=== PATIENT | female | born 1985 | race Caucasian/White ===

== ENCOUNTER 2019-08-21 22:53 | Emergency (ER) | payer BC ==
[2019-08-21] MEDS ORDERED: methylPREDNISolone Sodium Succinate 125 MG/2 ML SDV ONE (22:58)
[2019-08-21] MEDS ORDERED: Famotidine 20 MG/2 ML SDV ONE (22:59)
--- NOTE | 2019-08-21 23:02 | EDM.PDOC ---
ED HPI GENERAL MEDICAL PROBLEM - General Chief Complaint: Allergic Reaction Stated Complaint: BREATHING PROBLEM Time Seen by Provider: 08/21/19 22:58 Source of Information: Reports: Patient History Limitations: Reports: No Limitations - History of Present Illness INITIAL COMMENTS - FREE TEXT/NARRATIVE: 33-year-old female presents with allergic reaction just prior to arrival. She was playing a game in the house and there are cats in the house and she is allergic to cat dander. She started noticing scratchiness in the back of her throat. She denies shortness of breath, lightheadedness, abdominal pain, nausea, vomiting. She gave herself 50 mg of oral Benadryl. ROS: A 10-point review of systems, other than pertinent positives and negatives as stated per HPI, is otherwise negative PHYSICAL EXAM General: AOx4, GCS = 15, No distress HEENT: dry mucous membrane, uvula edematous. Mallampati score = 1 Neck: supple, no meningismus, no Kernig or Brudzinski Cardiac: S1S2 RRR Respiratory: CTAB, no crackles or rales, no wheezing Abdomen: Soft, nontender, no rebound or guarding, nondistended, no pulsatile mass. Back: nontender Musculoskeletal: NVI distally, no deformity Neuro: No focal deficits MEDICAL DECISION MAKING: I reviewed the patients past medical records, lab and radiographic findings. I discussed the case with family members. My differential diagnosis included: Anaphylaxis, allergic reaction, uvulitis. Patient was given epinephrine, IV Solu-Medrol, Pepcid, Benadryl, she was observed in the ER for extended period of time with improvement of her uvular edema, upon discharge she was not hypoxic or stridorous or drooling. Throat Pain Score (Numeric/FACES): 7 - Related Data Allergies Allergy/AdvReac Type Severity Reaction Status Date / Time cat arbender Allergy Airway Verified 08/21/19 23:18 Tightness Home Meds: Home Meds norgestimate-ethinyl estradioL [Tri-Linyah Tablet] 1 each PO DAILY 08/21/19 [History] predniSONE [Prednisone] 50 mg PO DAILY #5 tablet 08/21/19 [Rx] EPINEPHrine [Epipen 2-Titi] 0.3 mg IJ ONETIME PRN #1 auto.injct 08/22/19 [Rx] ED ROS ENT - Review of Systems Review Of Systems: Comprehensive ROS is negative, except as noted in HPI. ED EXAM, ENT - Physical Exam Exam: See Below (see dictation) Course - Vital Signs Last Recorded V/S: Last Vital Signs Temp 97.6 F 08/21/19 23:15 Pulse 70 08/21/19 23:30 Resp 18 08/21/19 23:30 BP 123/70 08/21/19 23:30 Pulse Ox 100 08/21/19 23:30 - Orders/Labs/Meds Meds: Medications Discontinued Medications Generic Name Dose Route Start Last Admin Trade Name Joycelyn PRN Reason Stop Dose Admin Epinephrine HCl 0.4 mg 08/21/19 23:16 08/21/19 23:20 Adrenalin IM 08/21/19 23:17 0.4 mg ONETIME ONE Administration Famotidine Confirm 08/21/19 22:59 08/21/19 23:47 Pepcid Administered 08/21/19 23:00 Not Given Dose 20 mg .ROUTE .STK-MED ONE Famotidine 20 mg 08/21/19 23:17 08/21/19 23:21 Pepcid IVPUSH 08/21/19 23:18 20 mg ONETIME ONE Administration Lactated Ringer's 1,000 mls @ 999 mls/hr 08/21/19 23:19 08/21/19 23:22 Ringers, Lactated IV 08/22/19 00:19 999 mls/hr .BOLUS ONE Administration Methylprednisolone Sodium Succinate Confirm 08/21/19 22:58 08/21/19 23:49 Solu-Medrol Administered 08/21/19 22:59 Not Given Dose 125 mg .ROUTE .STK-MED ONE Methylprednisolone Sodium Succinate 125 mg 08/21/19 23:18 08/21/19 23:20 Solu-Medrol IVPUSH 08/21/19 23:19 125 mg ONETIME ONE Administration - Re-Assessments/Exams Free Text/Narrative Re-Assessment/Exam: 08/21/19 23:00 Patient given IV Solu-Medrol, IV Pepcid, epinephrine IM. 08/22/19 01:59 After treatments and a prolonged observation period in the ER, the patient improved clinically and is stable for discharge. I performed a repeat examination and the patient has not demonstrated any new abnormal findings. Her uvula swelling is much improved, her Mallampati score = 1. She is not stridorous or drooling. Patient exhibits normal vital signs and has exhibited a normal gait. I advised the patient to return to the ER for reevaluation if symptoms worsened, and to follow up with their PCP within 2-3 days. Departure - Departure Time of Disposition: 02:01 Disposition: Home, Self-Care 01 Condition: Good Clinical Impression: Anaphylactic reaction - Discharge Information *PRESCRIPTION DRUG MONITORING PROGRAM REVIEWED*: Not Applicable *COPY OF PRESCRIPTION DRUG MONITORING REPORT IN PATIENT VY: Not Applicable Prescriptions: EPINEPHrine [Epipen 2-Titi] 0.3 mg IJ ONETIME PRN #1 auto.injct PRN Reason: Allergies predniSONE [Prednisone] 50 mg PO DAILY #5 tablet Instructions: How to Use an Auto-Injector Pen, Anaphylactic Reaction, Adult, [id number] Referrals: PCP,None [Primary Care Provider] - Forms: ED Department Discharge Additional Instructions: The following information is given to patients seen in the emergency department who are being discharged to home. This information is to outline your options for follow-up care. We provide all patients seen in our emergency department with a follow-up referral. The need for follow-up, as well as the timing and circumstances, are variable depending upon the specifics of your emergency department visit. If you don't have a primary care physician on staff, we will provide you with a referral. We always advise you to contact your personal physician following an emergency department visit to inform them of the circumstance of the visit and for follow-up with them and/or the need for any referrals to a consulting specialist. The emergency department will also refer you to a specialist when appropriate. This referral assures that you have the opportunity for follow-up care with a specialist. All of these measure are taken in an effort to provide you with optimal care, which includes your follow-up. Under all circumstances we always encourage you to contact your private physician who remains a resource for coordinating your care. When calling for follow-up care, please make the office aware that this follow-up is from your recent emergency room visit. If for any reason you are refused follow-up, please contact the [facility] Emergency Department at and asked to speak to the emergency department charge nurse. If you do not have a primary care doctor, please follow up with the clinics below within 3-5 days. [facility] [address] [place] [id number] [address] [address] Critical Care Note - Critical Care Note Comments: Critical Care: The high probability of sudden, clinically significant deterioration in the patient's condition required the highest level of my preparedness to intervene urgently. The services I provided to this patient were to treat and/or prevent clinically significant deterioration. Services included the following: chart data review, reviewing nursing notes and/or old charts, documentation time, bridal consultant collaboration regarding findings and treatment options, medication orders and management, direct patient care, vital sign assessments and ordering, interpreting and reviewing diagnostic studies/lab tests. Aggregate critical care time includes only time during which I was engaged in work directly related to the patient's care, as described above, whether at the bedside or elsewhere in the Emergency Department. It did not include time spent performing other reported procedures or the services of residents, students, nurses or physician assistants. Frequent interventions and/or frequent repeat evaluations were required as well as counseling and coordination of care regarding prognosis, treatments, and discussions with patient, staff and consultants. Critical Care (excluding other procedures): 40 minutes Sepsis Event Note (ED) - Focused Exam Vital Signs: Vital Signs Temp Pulse Resp BP Pulse Ox 08/21/19 23:30 70 18 123/70 100 06/20/20 23:15 97.6 F 80 22 H 124/83 98
[2019-08-21] MEDS ORDERED: EPINEPHrine 1 MG/1 ML Amp IM ONE (23:16)
[2019-08-21] MEDS ORDERED: Famotidine 20 MG/2 ML SDV IVPUSH ONE (23:17)
[2019-08-21] MEDS ORDERED: methylPREDNISolone Sodium Succinate 125 MG/2 ML SDV IVPUSH ONE (23:18)
[2019-08-21] MEDS ORDERED: Lactated Ringers 1,000 ML IV ONE (23:19)
== END 2019-08-22 02:15 | disposition home or self-care (01) ==
LOC: MW.ED 22:53
DX: T78.2XXA Anaphylactic shock, unspecified, initial encounter (principal); Z91.048 Other nonmedicinal substance allergy status; Z79.899 Other long term (current) drug therapy
CPT/HCPCS: 96372; 96374; 96375; 99291; J0171; J2930; J7120; S0028; 99285; J3490